=== PATIENT | male | born 1955 | race Caucasian/White ===

== ENCOUNTER 2021-01-26 12:32 | Emergency (ER) | payer SELFPAY ==
[~2021-01-26] VITALS: Ht 177.8 cm; Wt 65.0 kg
[2021-01-26 13:32] VITALS: BP 154/95
--- NOTE | 2021-01-26 13:35 | NUR ---
ASSUMED CARE OF PATIENT WHILE PRIMARY RN RENÉ IS ON BREAK. PT BIB [facility] FOR A GL[facility]. PT REPORTS HE HAS BEEN DRINKING BUT IS NOT DRUNK. TODAY IS HIS DAY OFF SO HE HAD 4 BEERS. PT TRIPPED WHILE WALKING AND SOMEONE CALLED EMS. PT DID NOT HIT HEAD. PT IS A&OX4. PT IS ABLE TO SAFLEY AMBULATE AROUND ROOM. PT USED URINAL. VS STABLE. NO ACUTE DISTRESS NOTED. WILL CONTINUE TO MONITOR
--- NOTE | 2021-01-26 14:15 | NUR ---
ROAD TEST AND PO HCALLENGE UNREMARKABLE IN THE SETTING OF PATIENT WANTING TO LEAVE. PATIENT SIGNED AMA FORM. PRVIDED WITH [employer]I VOUCHER AND DISCHARGED HOME
== END 2021-01-26 14:18 | disposition other institution (70) ==
LOC: ED 14:10
DX: F10.10 Alcohol abuse, uncomplicated (principal); Z53.21 Procedure and treatment not carried out due to patient leaving prior to being seen by health care provider; Y90.0 Blood alcohol level of less than 20 mg/100 ml